=== PATIENT | male | born 1985 | race Two or more races ===

== ENCOUNTER 2016-12-03 20:51 | Emergency (ER) | payer SELFPAY ==
--- NOTE | 2016-12-03 21:36 | ER Document Report ---
ED General - General Chief Complaint: ETOH Abuse Stated Complaint: ETOH Time Seen by Provider: 12/03/16 20:55 Cannot obtain history due to: Uncooperative Notes: Patient is a 31-year-old male with a past medical history of alcohol abuse who presents by EMS for alcohol abuse. Apparently the police were called to his home where he resides with his father after he got into an altercation with his father. Please offer the patient a opportunity come to the emergency department versus being arrested. The patient was transported to the emergency department given that he elected to come here as opposed to being arrested. However, immediately on presentation patient is stating "I just want to get the fuck out of here". He denies any acute trauma. He denies any additional concerns that he would like addressed in the emergency department. History is otherwise limited secondary to patient compliance. - Related Data Allergies/Adverse Reactions: haloperidol [From Haldol] Adverse Reaction (Verified 12/03/16 21:16) Past Medical History - General Information source: Patient - Social History Smoking Status: Current Every Day Smoker Frequency of alcohol use: Heavy Drug Abuse: Heroin, Marijuana Lives with: Family Family History: Reviewed & Not Pertinent Review of Systems - Review of Systems Notes: Constitutional: Negative for fever. Cardiovascular: Negative for chest pain. Respiratory: Negative for shortness of breath. Gastrointestinal: Negative for vomiting Musculoskeletal: Negative for back pain. Skin: Negative for rash. Neurological: Negative for weakness or numbness. 10 point ROS negative except as marked above and in HPI. Physical Exam - Vital signs Vitals: Resp BP Pulse Ox 18 136/98 H 92 12/03/16 21:00 12/03/16 21:00 12/03/16 21:00 Interpretation: Normal Notes: PHYSICAL EXAMINATION: GENERAL: Well-appearing, well-nourished and in no acute distress. HEAD: Atraumatic, normocephalic. EYES: sclera anicteric, conjunctiva are normal. ENT: Moist mucous membranes. NECK: Normal range of motion LUNGS: Normal work of breathing HEART: 2+ radial pulses bilaterally EXTREMITIES: no pitting or edema. No cyanosis. NEUROLOGICAL: No focal neurological deficits. Moves all extremities spontaneously and on command. PSYCH: Normal mood, normal affect. SKIN: Warm, Dry, normal turgor, no rashes or lesions noted. Course - Re-evaluation Re-evalutation: 12/03/16 21:35 Patient presents with acute alcohol intoxication without any additional acute complaints. Admits to heavy alcohol use today. He was brought by EMS although states he did not want to come and denies any concerns. No evidence of trauma on exam. Patient was clinically sober at time of presentation. Able to ambulate and talking clear sentences prior to discharge. Tolerating oral intake without difficulty. The patient has been instructed to seek help for alcohol detoxification. Will discharge and return precautions and follow-up recommendations. - Vital Signs Vital signs: Temp Pulse Resp BP Pulse Ox 98.2 F 18 139/93 H 92 12/03/16 21:13 12/03/16 21:00 12/03/16 21:20 12/03/16 21:20 Discharge - Discharge Clinical Impression: Alcohol abuse Condition: Stable Disposition: HOME, SELF-CARE Additional Instructions: You were seen in the emergency department today for being drunk. Being seen in the emergency department after drinking alcohol is a serious indicator that you have a problem with alcohol. You should seek help with the attached resources for your problem drinking. Please return to the emergency room immediately if you experience any concerning symptoms including high fevers, severe headache, chest pain, difficulty breathing, abdominal pain, slurred speech, numbness or weakness in your arms or legs, or any other symptom that concerns you.
[2016-12-03 21:38] VITALS: BP 139/93
== END 2016-12-03 21:45 | disposition home or self-care (01) ==
LOC: ER 20:51
DX: F10.10 Alcohol abuse, uncomplicated (principal); F17.200 Nicotine dependence, unspecified, uncomplicated
CPT/HCPCS: 99284

== ENCOUNTER 2016-12-04 00:46 | Emergency (ER) | payer SELFPAY ==
--- NOTE | 2016-12-04 01:14 | ER Document Report ---
ED Substance Abuse / Acc. OD - General Chief Complaint: ETOH Abuse Stated Complaint: ETOH ABUSE Time Seen by Provider: 12/04/16 01:04 Notes: Patient is a 31-year-old male that comes to the ED for chief complaint of alcohol intoxication. Apparently patient was just released from this facility, he went home, he drank again, and he came back. He states he wants help with alcohol detox. He states that he has performed official detox program earlier in the year and has been doing well until he moved to [place] and now he drinks again. He denies SI or HI, he states he just wants to stop drinking. He takes Lexapro and lisinopril daily. He states that he smokes, he occasionally uses heroin and other recreational drugs. He states that he simply drank alcohol. TRAVEL OUTSIDE OF THE [place] IN LAST 30 DAYS: No - Related Data Allergies/Adverse Reactions: haloperidol [From Haldol] Adverse Reaction (Verified 12/03/16 21:16) Past Medical History - General Information source: Patient - Social History Smoking Status: Current Every Day Smoker Frequency of alcohol use: Heavy Drug Abuse: Heroin Lives with: Alone Family History: Reviewed & Not Pertinent Patient has suicidal ideation: No Patient has homicidal ideation: No - Medical History Medical History: Negative Renal/ Medical History: Denies: Hx Peritoneal Dialysis Surgical Hx: Negative - Immunizations Immunizations up to date: Yes Hx Diphtheria, Pertussis, Tetanus Vaccination: Yes Review of Systems - Review of Systems Constitutional: No symptoms reported EENT: No symptoms reported Cardiovascular: No symptoms reported Respiratory: No symptoms reported Gastrointestinal: No symptoms reported Genitourinary: No symptoms reported Male Genitourinary: No symptoms reported Musculoskeletal: No symptoms reported Skin: No symptoms reported Hematologic/Lymphatic: No symptoms reported Neurological/Psychological: See HPI Physical Exam - Vital signs Vitals: Temp Pulse Resp BP Pulse Ox 98.9 F 109 H 18 138/93 H 93 12/04/16 00:57 12/04/16 00:57 12/04/16 00:57 12/04/16 00:57 12/04/16 00:57 Interpretation: Normal - General General appearance: Appears well, Alert In distress: None - Patient is slurring his words and does appear intoxicated but he does not appear to be in any distress - HEENT Head: Normocephalic, Atraumatic Eyes: Normal Conjunctiva: Normal Extraocular movements intact: Yes Eyelashes: Normal Pupils: PERRL Nasal: Normal Mouth/Lips: Normal Mucous membranes: Normal Pharynx: Normal Neck: Normal - Respiratory Respiratory status: No respiratory distress Chest status: Nontender Breath sounds: Normal Chest palpation: Normal - Cardiovascular Rhythm: Regular. No: Tachycardia - No tachycardia on my exam Heart sounds: Normal auscultation, S1 appreciated, S2 appreciated Murmur: No - Abdominal Inspection: Normal Distension: No distension Bowel sounds: Normal Tenderness: Nontender. No: Tender, Guarding Organomegaly: No organomegaly - Back Back: Normal, Nontender - Extremities General upper extremity: Normal inspection, Nontender, Normal color, Normal ROM , Normal temperature General lower extremity: Normal inspection, Nontender, Normal color, Normal ROM , Normal temperature, Normal weight bearing. No: Tejas's sign - Neurological Neuro grossly intact: Yes Cognition: Normal Orientation: AAOx4. No: Disoriented to person, Disoriented to place, Disoriented to time, Disoriented to events [place] Coma Scale Eye Opening: Spontaneous [place] Coma Scale Verbal: Oriented Vanessa Coma Scale Motor: Obeys Commands [place] Coma Scale Total: 15 Speech: Normal, Other - Slight slurring of words Cerebellar coordination: Gait ataxia - Slight ataxia Motor strength normal: LUE, RUE, LLE, RLE Additional motor exam normals: Equal guest relations executive Sensory: Normal - Psychological Associated symptoms: Normal affect, Normal mood - Skin Skin Temperature: Warm Skin Moisture: Dry Skin Color: Normal Course - Re-evaluation Re-evalutation: Patient initially calm, he states that he does not want to go into detox, he states that he wants Ativan for withdrawals. Recommended that we could help refer him to detox if he changes his mind and I can give him Librium to help him perform detoxification. He states that he does not want Librium, he has tried this before, he wants Ativan. He states he likes Ativan. I explained that I would not be giving him Ativan but if he changes his mind about detox and Librium I am happy to provide him with these. He states "you aren't getting it, I want fucking Ativan". He states if he can't get it he just wants to leave. Explained to patient that when he porter up he can leave, unless he has a ride to leave now. He does not have a ride. He agrees to sober up here and then leave. Patient will be monitored until he does not slur his words and ambulates without difficulty. When he is clinically sober he will be discharged with resource referrals. 12/04/16 07:15 Patient is now clinically sober. He has declined offered treatments. He will be discharged with psychiatric referral packet and detox referral directions packet. - Vital Signs Vital signs: Temp Pulse Resp BP Pulse Ox 98.1 F 75 16 126/77 H 98 12/04/16 07:28 12/04/16 07:28 12/04/16 07:28 12/04/16 07:28 12/04/16 07:28 Discharge - Discharge Clinical Impression: Alcohol abuse Condition: Stable Disposition: HOME, SELF-CARE Additional Instructions: You were seen in the emergency department today for being drunk. Being seen in the emergency department after drinking alcohol is a serious indicator that you have a problem with alcohol. You should seek help with the attached resources for your problem drinking. Please return to the emergency room immediately if you experience any concerning symptoms including high fevers, severe headache, chest pain, difficulty breathing, abdominal pain, slurred speech, numbness or weakness in your arms or legs, or any other symptom that concerns you.
[2016-12-04 07:30] VITALS: BP 126/77
== END 2016-12-04 07:30 | disposition home or self-care (01) ==
LOC: ER 00:46
DX: F10.10 Alcohol abuse, uncomplicated (principal); F17.200 Nicotine dependence, unspecified, uncomplicated
CPT/HCPCS: 99284

== ENCOUNTER 2016-12-04 14:18 | Emergency (ER) | payer SELFPAY ==
[2016-12-04 14:24] VITALS: BP 133/102
== END 2016-12-04 14:33 | disposition left against medical advice (07) ==
LOC: ER 14:18
DX: Z53.21 Procedure and treatment not carried out due to patient leaving prior to being seen by health care provider (principal)

== ENCOUNTER 2016-12-05 14:30 | Emergency (ER) | payer SELFPAY ==
--- NOTE | 2016-12-05 14:54 | ER Document Report ---
ED Medical Screen (RME) - General Chief Complaint: ETOH Abuse Stated Complaint: NEEDS TO DETOX Time Seen by Provider: 12/05/16 14:50 Mode of Arrival: Ambulatory Information source: Patient Notes: 31-year-old male who has been here multiple times for alcohol intoxication presents with request for detox. Patient notes he last drank a few hours ago I have greeted and performed a rapid initial assessment of this patient. A comprehensive ED assessment and evaluation of the patient, analysis of test results and completion of the medical decision making process will be conducted by additional ED providers. PHYSICAL EXAMINATION: GENERAL: Intoxicated male HEAD: Atraumatic, normocephalic. EYES: Pupils equal round extraocular movements intact, conjunctiva are normal. ENT: Nares patent NECK: Normal range of motion LUNGS: No respiratory distress Musculoskeletal: Normal range of motion NEUROLOGICAL: Normal speech, normal gait. PSYCH: Normal mood, normal affect. SKIN: Warm, Dry, normal turgor, no rashes or lesions noted. TRAVEL OUTSIDE OF THE [place] IN LAST 30 DAYS: No - Related Data Allergies/Adverse Reactions: haloperidol [From Haldol] Adverse Reaction (Verified 12/05/16 14:45) Past Medical History - Social History Chew tobacco use (# tins/day): No Frequency of alcohol use: Heavy - Past Medical History Cardiac Medical History: Reports: Hx Hypertension Renal/ Medical History: Denies: Hx Peritoneal Dialysis - Immunizations Immunizations up to date: Yes Hx Diphtheria, Pertussis, Tetanus Vaccination: Yes Physical Exam - Vital signs Vitals: Temp Pulse Resp BP Pulse Ox 98.7 F 103 H 20 151/95 H 95 12/05/16 14:38 12/05/16 14:38 12/05/16 14:38 12/05/16 14:38 12/05/16 14:38 Course - Vital Signs Vital signs: Temp Pulse Resp BP Pulse Ox 98.7 F 103 H 20 151/95 H 95 12/05/16 14:38 12/05/16 14:38 12/05/16 14:38 12/05/16 14:38 12/05/16 14:38
[2016-12-05] MEDS ORDERED: LORAZEPAM INJ 2 MG/1 ML VIAL IM ONE (15:32)
[2016-12-05] MEDS ORDERED: ZIPRASIDONE MESYLATE INJ/PF 20 MG SDV IM ONE (15:34)
--- NOTE | 2016-12-05 15:58 | ER Document Report ---
ED Substance Abuse / Acc. OD - General Mode of Arrival: Ambulatory Information source: Patient TRAVEL OUTSIDE OF THE [place] IN LAST 30 DAYS: No - HPI Patient complains to provider of: Alcohol abuse Associated Symptoms: None <DARRIN AZEVEDO - Last Filed: 12/05/16 18:21> <CHRIS ABDI - Last Filed: 12/06/16 02:22> <PERRY DE LA ROSA - Last Filed: 12/06/16 06:53> - General Chief Complaint: ETOH Abuse Stated Complaint: NEEDS TO DETOX Time Seen by Provider: 12/05/16 14:50 - HPI Notes: Patient is a 31-year-old male presenting to the emergency room today requesting assistance with alcohol detox and rehab, states he was clean for approximately 13 months and then moved down to the [facility] from [place] 3 weeks ago for a job and since then has "fallen off the wagon", he drinks Declan Rice as his alcohol of choice and states that he will do any drug he can get his hands on, he is quite nasty and uncooperative at time of my evaluation, he is surrounded by 4 security guards as he is attempted to leave the emergency room, stating that we are not helping him, this is patient's fourth visit to this department for similar symptoms (DARRIN AZEVEDO) - Related Data Allergies/Adverse Reactions: haloperidol [From Haldol] Adverse Reaction (Verified 12/05/16 14:45) Past Medical History - General Information source: Patient - Social History Smoking Status: Current Some Day Smoker Chew tobacco use (# tins/day): No Frequency of alcohol use: Heavy Family History: Reviewed & Not Pertinent Patient has suicidal ideation: No Patient has homicidal ideation: No - Past Medical History Cardiac Medical History: Reports: Hx Hypertension Renal/ Medical History: Denies: Hx Peritoneal Dialysis - Immunizations Immunizations up to date: Yes Hx Diphtheria, Pertussis, Tetanus Vaccination: Yes <DARRIN AZEVEDO - Last Filed: 12/05/16 18:21> Review of Systems - Review of Systems Constitutional: No symptoms reported EENT: No symptoms reported Cardiovascular: No symptoms reported Respiratory: No symptoms reported Gastrointestinal: No symptoms reported Genitourinary: No symptoms reported Male Genitourinary: No symptoms reported Musculoskeletal: No symptoms reported Skin: No symptoms reported Hematologic/Lymphatic: No symptoms reported Neurological/Psychological: See HPI -: Yes All other systems reviewed and negative <DARRIN AZEVEDO - Last Filed: 12/05/16 18:21> Physical Exam - Vital signs Interpretation: Tachycardic - General General appearance: Appears well, Alert - HEENT Head: Normocephalic, Atraumatic Eyes: Normal Pupils: PERRL - Respiratory Respiratory status: No respiratory distress Chest status: Nontender Breath sounds: Normal Chest palpation: Normal - Cardiovascular Rhythm: Regular Heart sounds: Normal auscultation Murmur: No - Abdominal Inspection: Normal Distension: No distension Bowel sounds: Normal Tenderness: Nontender Organomegaly: No organomegaly - Back Back: Normal, Nontender - Extremities General upper extremity: Normal inspection, Nontender, Normal color, Normal ROM , Normal temperature General lower extremity: Normal inspection, Nontender, Normal color, Normal ROM , Normal temperature, Normal weight bearing. No: Tejas's sign - Neurological Neuro grossly intact: Yes Cognition: Normal Orientation: AAOx4 Vanessa Coma Scale Eye Opening: Spontaneous [place] Coma Scale Verbal: Oriented [place] Coma Scale Motor: Obeys Commands Vanessa Coma Scale Total: 15 Speech: Normal Motor strength normal: LUE, RUE, LLE, RLE Sensory: Normal - Psychological Associated symptoms: Agitated, Angry, Combative, Uncooperative, Other - EtOH on breath - Skin Skin Temperature: Warm Skin Moisture: Dry Skin Color: Normal <DARRIN AZEVEDO - Last Filed: 12/05/16 18:21> - Vital signs Vitals: Temp Pulse Resp BP Pulse Ox 98.7 F 103 H 20 151/95 H 95 12/05/16 14:38 12/05/16 14:38 12/05/16 14:38 12/05/16 14:38 12/05/16 14:38 Course <DARRIN AZEVEDO - Last Filed: 12/05/16 18:21> - Laboratory Result Diagrams: 12/05/16 20:09 12/05/16 20:09 <CHRIS ABDI - Last Filed: 12/06/16 02:22> - Laboratory Result Diagrams: 12/05/16 20:09 12/05/16 20:09 <PERRY DE LA ROSA - Last Filed: 12/06/16 06:53> - Re-evaluation Re-evalutation: 12/05/16 15:57 Patient was slurred speech and unsteady gait, patient is not clinically sober to be safely discharged at this point in time, although is uncooperative and attempting to leave to the department, I feel it is unsafe to allow him to leave at this point in time, therefore intramuscular medication was ordered in an attempt to calm patient down and security is at bedside to ensure that patient does not leave the department 12/05/16 18:21 Patient has been sleeping comfortably on the stretcher, discussed with Dr. Abdi who agrees to assume care until patient is clinically sober and safe for discharge (DARRIN AZEVEDO) 12/06/16 02:23 Sign-out from Dr. Ordoñez: 31 yo alcoholic presents belligerent and intoxicated. Patient woke up and is threatening to the nurses. I evaluated the patient and he is clinically sober. He has gone through withdrawal seizures in the past, but he is still requesting detox. He said that he will remain cooperative and speak to mental health in the morning because he just moved here and is unsure how to obtain detox. We will provide him with a dose of Valium to help prevent any withdrawal symptoms. (CHRIS ABDI) 12/06/16 06:50 Pt is awake, alert, no longer wishes to go to detox, no tremor, no signs of withdrawal, denies suicidal ideation, denies desire for librium to prevent withdrawal symptoms at home, currently denies history of withdrawal seizures despite previous statements to the contrary. Patient will be discharged home. ( PERRY DE LA ROSA) - Vital Signs Vital signs: Temp Pulse Resp BP Pulse Ox 98.0 F 89 16 116/95 H 98 12/06/16 05:39 12/06/16 05:39 12/06/16 05:39 12/06/16 05:39 12/06/16 05:39 - Laboratory Laboratory results interpreted by me: 12/05/16 12/05/16 12/05/16 16:22 20:09 20:09 WBC 13.3 H Absolute Neutrophils 9.8 H BUN 5 L AST 73 H Urine Protein 100 H Urine Blood MODERATE H Salicylates < 1.0 L Acetaminophen < 10 L Discharge <DARRIN AZEVEDO - Last Filed: 12/05/16 18:21> <CHRIS ABDI - Last Filed: 12/06/16 02:22> <PERRY DE LA ROSA - Last Filed: 12/06/16 06:53> - Discharge Clinical Impression: Alcohol abuse Condition: Stable Disposition: HOME, SELF-CARE Additional Instructions: Alcohol Withdrawal Your symptoms are caused by alcohol withdrawal. After a period of frequent drinking, the brain and body are changed by the alcohol. When you quit or reduce your drinking, the nervous system becomes unstable. Withdrawal symptoms can start a few hours after your last drink, but sometimes don't begin until a couple of days later. Symptoms can include shakiness, sweating, insomnia, nausea , vomiting, fearfulness, hallucinations, and seizures. In addition to the acute effects of alcohol withdrawal, we often have to deal with the medical effects of alcoholism. These problems often include dehydration, stomach irritation, intestinal bleeding, low blood sugar, liver disease, and pancreas inflammation. Treatment for alcohol withdrawal includes mild sedatives, vitamins, and fluids. You need to be with someone who can help if symptoms become severe. Many patients can withdraw at home. Admission to the hospital or a detox facility may be necessary if withdrawal symptoms are severe and uncontrollable. Abstaining from alcohol is the only effective long-term treatment. If you start drinking again, you will not be able to control yourself after the first drink. Treatment programs are available. In addition, many alcoholics benefit from Alcoholics Anonymous or other support groups available through your counselor or yazidism blacksmith helper. [facility] and [employer] are support groups for friends and family members of an alcoholic. Go to the emergency room if you develop persistent vomiting, severe abdominal pain, fever, shortness of breath, hallucinations, uncontrollable tremors, or seizures.
--- NOTE | 2016-12-05 16:31 | ER Document Report ---
ED Psych Disorder / Suicide - General Mode of Arrival: Ambulatory Information source: Patient Cannot obtain history due to: Intoxicated - likely intoxicated, Other - Received Geodon to assist him in remaining calm and safe due to suspected level of intoxication TRAVEL OUTSIDE OF THE [place] IN LAST 30 DAYS: No - HPI Onset: Other Onset was: Cannot confirm Suicide Risk Factors: Substance abuse - daily liquor Normal mood: No Similar symptoms previously: Yes - 4th visit in 3 days Recently seen / treated by doctor: Yes - [facility] <DAVID CUMMINGS - Last Filed: 12/05/16 16:20> <PERRY DE LA ROSA - Last Filed: 12/06/16 06:53> - General Chief Complaint: ETOH Abuse Stated Complaint: NEEDS TO DETOX Time Seen by Provider: 12/05/16 14:50 - HPI Notes: Patient is a 31 year old male who presented to the ER today requesting assistance with detox. Patient reportedly had a recent relapse after 13 months of sobriety. Patient reported relocated to [facility] for a job. He has presented 4 x, to include yesterday; however, left without being seen. Patient was observed verbally belligerent. Patient was administered medications to assist him in remaining calm for his safety and the safety of others. Did attempt to speak with the patient, but was unable to arouse patient for conversation. Will attempt at a later time. (DAVID CUMMINGS) - Related Data Allergies/Adverse Reactions: haloperidol [From Haldol] Adverse Reaction (Verified 12/05/16 14:45) Past Medical History - General Information source: Patient - Social History Smoking Status: Current Some Day Smoker Chew tobacco use (# tins/day): No Frequency of alcohol use: Heavy Family History: Reviewed & Not Pertinent Patient has suicidal ideation: No Patient has homicidal ideation: No - Past Medical History Cardiac Medical History: Reports: Hx Hypertension Renal/ Medical History: Denies: Hx Peritoneal Dialysis - Immunizations Immunizations up to date: Yes Hx Diphtheria, Pertussis, Tetanus Vaccination: Yes <DAVID CUMMINGS - Last Filed: 12/05/16 16:20> - Vital signs Vitals: Temp Pulse Resp BP Pulse Ox 98.7 F 103 H 20 151/95 H 95 12/05/16 14:38 12/05/16 14:38 12/05/16 14:38 12/05/16 14:38 12/05/16 14:38 Course - Laboratory Result Diagrams: 12/05/16 20:09 12/05/16 20:09 <PERRY DE LA ROSA - Last Filed: 12/06/16 06:53> - Vital Signs Vital signs: Temp Pulse Resp BP Pulse Ox 98.0 F 89 16 116/95 H 98 12/06/16 05:39 12/06/16 05:39 12/06/16 05:39 12/06/16 05:39 12/06/16 05:39 - Laboratory Laboratory results interpreted by me: 12/05/16 12/05/16 12/05/16 16:22 20:09 20:09 WBC 13.3 H Absolute Neutrophils 9.8 H BUN 5 L AST 73 H Urine Protein 100 H Urine Blood MODERATE H Salicylates < 1.0 L Acetaminophen < 10 L Discharge <DAVID CUMMINGS - Last Filed: 12/05/16 16:20> <PERRY DE LA ROSA - Last Filed: 12/06/16 06:53> - Discharge Clinical Impression: Alcohol abuse Condition: Stable Disposition: HOME, SELF-CARE Additional Instructions: Alcohol Withdrawal Your symptoms are caused by alcohol withdrawal. After a period of frequent drinking, the brain and body are changed by the alcohol. When you quit or reduce your drinking, the nervous system becomes unstable. Withdrawal symptoms can start a few hours after your last drink, but sometimes don't begin until a couple of days later. Symptoms can include shakiness, sweating, insomnia, nausea , vomiting, fearfulness, hallucinations, and seizures. In addition to the acute effects of alcohol withdrawal, we often have to deal with the medical effects of alcoholism. These problems often include dehydration, stomach irritation, intestinal bleeding, low blood sugar, liver disease, and pancreas inflammation. Treatment for alcohol withdrawal includes mild sedatives, vitamins, and fluids. You need to be with someone who can help if symptoms become severe. Many patients can withdraw at home. Admission to the hospital or a detox facility may be necessary if withdrawal symptoms are severe and uncontrollable. Abstaining from alcohol is the only effective long-term treatment. If you start drinking again, you will not be able to control yourself after the first drink. Treatment programs are available. In addition, many alcoholics benefit from Alcoholics Anonymous or other support groups available through your counselor or congregational asl interpreter. [facility] and A[employer]TE[facility] are support groups for friends and family members of an alcoholic. Go to the emergency room if you develop persistent vomiting, severe abdominal pain, fever, shortness of breath, hallucinations, uncontrollable tremors, or seizures.
[2016-12-05 17:02] LABS: APPEARANCE,URINE CLEAR; BILIRUBIN,URINE NEGATIVE (NEGATIVE); GLUCOSE, URINE NEGATIVE (NEGATIVE); KETONES,URINE NEGATIVE (NEGATIVE); LEUKOCYTE ESTERASE,URINE NEGATIVE (NEGATIVE); NITRITE,URINE NEGATIVE (NEGATIVE); PROTEIN,URINE 100 mg/dL (NEGATIVE); URINE SPECIFIC GRAVITY 1.003; UROBILINOGEN,URINE NEGATIVE mg/dL (<2.0)
[2016-12-05 17:24] LABS: URINE BARBITURATES SCREEN NEGATIVE; URINE METHADONE SCREEN NEGATIVE; URINE OPIATES LOW NEGATIVE; URINE PHENCYCLIDINE SCREEN NEGATIVE
[2016-12-05 20:23] LABS: ABSOLUTE BASOPHILS # (AUTO) 0.1 10^3/uL (0.0-0.2); ABSOLUTE EOSINOPHILS # (AUTO) 0.2 10^3/uL (0.0-0.6); ABSOLUTE LYMPHOCYTES (AUTO) 2.7 10^3/uL (0.5-4.7); ABSOLUTE MONOCYTES (AUTO) 0.5 10^3/uL (0.1-1.4); ABSOLUTE NEUT (AUTO) 9.8 10^3/uL (1.7-8.2); BASOPHILS % (AUTO) 0.4 % (0-2); EOSINOPHILS % (AUTO) 1.7 % (0-6); HEMATOCRIT 43.1 % (37.9-51.0); HGB HCT DIFFERENCE 1.9; LYMPHOCYTES % (AUTO) 20.1 % (13-45); MEAN CORPUSCULAR HEMOGLOBIN 30.6 pg (27.0-33.4); MEAN CORPUSCULAR HGB CONC 34.9 g/dL (32.0-36.0); MEAN CORPUSCULAR VOLUME 88 fl (80-97); MONOCYTES % (AUTO) 4.1 % (3-13); RED BLOOD COUNT 4.93 10^6/uL (4.35-5.55); RED CELL DISTRIBUTION WIDTH 12.7 % (11.5-14.0); SEGMENTED NEUTROPHILS % (AUTO) 73.7 % (42-78); WHITE BLOOD COUNT 13.3 10^3/uL (4.0-10.5)
[2016-12-05 20:50] LABS: ALANINE AMINOTRANSFERASE 40 U/L (21-72); ALBUMIN 4.9 g/dL (3.5-5.0); ALCOHOL 259 mg/dL (NONE DETECTED); ALKALINE PHOSPHATASE 90 U/L (38-126); ANION GAP 17 (5-19); ASPARTATE AMINO TRANSFERASE 73 U/L (17-59); BILIRUBIN,DIRECT 0.4 mg/dL (0.0-0.4); BILIRUBIN,TOTAL 0.9 mg/dL (0.2-1.3); BLOOD UREA NITROGEN 5 mg/dL (7-20); CALCIUM 9.4 mg/dL (8.4-10.2); CARBON DIOXIDE 25 mmol/L (22-30); CHLORIDE 100 mmol/L (98-107); CREATININE RESULT 0.76 mg/dL (0.52-1.25); GLUCOSE 96 mg/dL (75-110); POTASSIUM 4.4 mmol/L (3.6-5.0); SODIUM 141.7 mmol/L (137-145); TOTAL PROTEIN 7.8 g/dL (6.3-8.2)
[2016-12-06] MEDS ORDERED: DIAZEPAM 5 MG TABLET PO ONE (02:22)
[2016-12-06 05:51] VITALS: BP 116/95
--- NOTE | 2016-12-06 16:44 | EKG REPORT ---
SEVERITY:- NORMAL ECG - SINUS RHYTHM : Confirmed by: Rossana Morales MD 06-Dec-2016 16:44:13
== END 2016-12-06 06:55 | disposition home or self-care (01) ==
LOC: ER 14:30
DX: F10.10 Alcohol abuse, uncomplicated (principal); F17.200 Nicotine dependence, unspecified, uncomplicated
CPT/HCPCS: 93005; 99284; 96372; 36415; 80307 ×4; 85025; 80053; 81001; 93010; J3486

== ENCOUNTER 2016-12-06 21:24 | Emergency (ER) | payer SELFPAY ==
[2016-12-06] MEDS ORDERED: ZIPRASIDONE MESYLATE INJ/PF 20 MG SDV IM ONE (21:28)
--- NOTE | 2016-12-06 21:30 | ER Document Report ---
ED Substance Abuse / Acc. OD - General Chief Complaint: ETOH Abuse Stated Complaint: ETOH/ALTERED MENTAL STATUS Time Seen by Provider: 12/06/16 21:28 Notes: The patient is a 31-year-old male, past medical history chronic alcoholism, presents by EMS after he was at his hotel and harassing other hotel guest. He drinks 24 shots of Declan Rice a day said that he drank again tonight. This is his 5th visit this week for similar symptoms. He left this morning after he requested detox, but he did not stay around to speak to mental health. He began to spit and become aggressive towards EMS prior to arrival. Patient continues to say, "Fuck all you" to the ER staff on arrival to the ER. Unable to obtain any additional history. TRAVEL OUTSIDE OF THE [place] IN LAST 30 DAYS: No - Related Data Allergies/Adverse Reactions: haloperidol [From Haldol] Adverse Reaction (Verified 12/05/16 14:45) Past Medical History - General Information source: Emergency Med Personnel - Social History Smoking Status: Current Every Day Smoker Frequency of alcohol use: Heavy Family History: Reviewed & Not Pertinent - Past Medical History Cardiac Medical History: Reports: Hx Hypertension Renal/ Medical History: Denies: Hx Peritoneal Dialysis - Immunizations Immunizations up to date: Yes Hx Diphtheria, Pertussis, Tetanus Vaccination: Yes Review of Systems - Review of Systems -: Yes ROS unobtainable due to patient's medical condition Physical Exam - Vital signs Vitals: Pulse Resp BP Pulse Ox 90 18 141/98 H 99 12/06/16 21:49 12/06/16 21:49 12/06/16 21:49 12/06/16 21:49 - Notes Notes: PHYSICAL EXAMINATION: GENERAL: Agitated. Spitting. Screaming. HEAD: Atraumatic, normocephalic. EYES: Pupils equal round and reactive to light, extraocular movements intact, sclera anicteric, conjunctiva are normal. ENT: nares patent, oropharynx clear without exudates. Moist mucous membranes. NECK: Normal range of motion, supple without lymphadenopathy LUNGS: Breath sounds clear to auscultation bilaterally and equal. No wheezes rales or rhonchi. HEART: Regular rate and rhythm without murmurs ABDOMEN: Soft, nontender, normoactive bowel sounds. No guarding, no rebound. No masses appreciated. EXTREMITIES: Normal range of motion, no pitting or edema. No cyanosis. NEUROLOGICAL: Moving all 4 extremities, no focal neuro deficits. PSYCH: Agitated. SKIN: Warm, Dry, normal turgor, no rashes or lesions noted. Course - Re-evaluation Re-evalutation: Patient presents for the fifth time this week with similar symptoms. He is clinically intoxicated and Accu-Chek is normal. He was provided Geodon due to spitting and trying to hit the staff. Patient provided with detox resources multiple times. Patient discharged home with a steady gait and when he was clinically sober. - Vital Signs Vital signs: Temp Pulse Resp BP Pulse Ox 90 18 141/98 H 99 12/06/16 21:49 12/06/16 21:49 12/06/16 21:49 12/06/16 21:49 Discharge - Discharge Clinical Impression: Alcohol intoxication Qualifiers: Complication of substance-induced condition: with unspecified complication Qualified Code(s): F10.929 - Alcohol use, unspecified with intoxication, unspecified Condition: Stable Additional Instructions: ACUTE ALCOHOL INTOXICATION and ALCOHOL ABUSE: Your evaluation revealed very high levels of alcohol. You can from drinking a large amount of alcohol rapidly! Further, there's the risk of falls , traffic accidents, and fights. A high portion (about 50 percent) of the serious injuries seen in hospital emergency rooms are caused by alcohol. Alcohol overdosage is usually due to an underlying emotional or psychiatric problem. You may benefit from counselling. If "binge" drinking is an ongoing problem for you, or if you drink ANY AMOUNT of alcohol EVERY day, you most likely have a tendency to alcoholism. You should avoid alcohol totally. We can refer you for treatment. Persons with alcohol problems are often also prone to other addictions -- you should discuss any use of medications or drugs with the doctor. You should be watched at home for the next several hours by someone who has not been drinking. Get extra fluids for the next 24 hours. Call the doctor if there is repeated vomiting, increasing headache, decreasing level of alertness, or any other worsening. CHRONIC ALCOHOLISM and ALCOHOL ABUSE: Your evaluation reveals evidence of chronic alcoholism, an addiction to alcohol. The tendency to alcoholism may be inherited. Chronic use of alcohol weakens muscles, causes fatty deposits in the liver , damages the stomach, makes you more prone to infections, and can cause defects in unborn children. In the long run, brain atrophy and cirrhosis of the liver result. You are also at greater risk for certain types of cancer, such as cancer of the mouth, throat, stomach, and liver. Counselling services are available to help you. In-hospital treatment programs often help. Support groups such as Alcoholics Anonymous can be very useful in beating this addiction. Your physician can make a referral for you. As alcoholics often are prone to other addictions, you should discuss your use of any other medications with the doctor. FOLLOW-UP CARE: If you have been referred to a physician for follow-up care, call the physician s office for an appointment as you were instructed or within the next two days. If you experience worsening or a significant change in your symptoms, notify the physician immediately or return to the Emergency Department at any time for re-evaluation. Forms: Elevated Blood Pressure Referrals: [facility] [Outside] - Follow up as needed
[2016-12-07 06:49] VITALS: BP 108/68
== END 2016-12-07 06:48 | disposition home or self-care (01) ==
LOC: ER 21:24
DX: F10.929 Alcohol use, unspecified with intoxication, unspecified (principal); F17.200 Nicotine dependence, unspecified, uncomplicated; I10 Essential (primary) hypertension
CPT/HCPCS: 99285; 96372; 82962; J3486

== ENCOUNTER 2016-12-08 20:33 | Emergency (ER) | payer SELFPAY ==
[2016-12-08] MEDS ORDERED: ZIPRASIDONE MESYLATE INJ/PF 20 MG SDV IM ONE (23:58)
[2016-12-08] MEDS ORDERED: DIAZEPAM 5 MG TABLET PO ONE (23:59)
--- NOTE | 2016-12-09 00:06 | ER Document Report ---
ED General - General Chief Complaint: ETOH Abuse Stated Complaint: ETOH Time Seen by Provider: 12/08/16 23:34 Notes: Patient is a 31-year-old male, well-known to this emergency department after moving just 2 weeks ago from [place] apparently for work who again presents today requesting detox from alcohol. Patient denies any known history of complicated withdrawals, seizures or delirium tremens. He denies any of these events at home today. He states that he is craving alcohol and that is why he feels he needs to be admitted to the hospital for withdrawal. He denies any additional acute medical complaints. He does not have a local primary care physician. He has not contacted any of the outpatient resources that he has been provided with. Nothing improves or worsens his symptoms. TRAVEL OUTSIDE OF THE [place] IN LAST 30 DAYS: No - Related Data Allergies/Adverse Reactions: haloperidol [From Haldol] Adverse Reaction (Verified 12/05/16 14:45) Past Medical History - General Information source: Patient - Social History Smoking Status: Current Every Day Smoker Frequency of alcohol use: Heavy Lives with: Parents Family History: Reviewed & Not Pertinent Patient has suicidal ideation: No Patient has homicidal ideation: No - Past Medical History Cardiac Medical History: Reports: Hx Hypertension Renal/ Medical History: Denies: Hx Peritoneal Dialysis - Immunizations Immunizations up to date: Yes Hx Diphtheria, Pertussis, Tetanus Vaccination: Yes Review of Systems - Review of Systems Notes: Constitutional: Negative for fever. HENT: Negative for sore throat. Eyes: Negative for visual changes. Cardiovascular: Negative for chest pain. Respiratory: Negative for shortness of breath. Gastrointestinal: Negative for abdominal pain, vomiting or diarrhea. Genitourinary: Negative for dysuria. Musculoskeletal: Negative for back pain. Skin: Negative for rash. Neurological: Negative for headaches, weakness or numbness. 10 point ROS negative except as marked above and in HPI. Physical Exam - Vital signs Vitals: Temp Pulse Resp BP Pulse Ox 99.0 F 110 H 18 138/98 H 96 12/08/16 21:30 12/08/16 21:30 12/08/16 21:30 12/08/16 21:30 12/08/16 21:30 Interpretation: Tachycardic Notes: PHYSICAL EXAMINATION: GENERAL: Well-appearing, well-nourished and in no acute distress. HEAD: Atraumatic, normocephalic. EYES: sclera anicteric, conjunctiva are normal. ENT: Moist mucous membranes. NECK: Normal range of motion LUNGS: Normal work of breathing HEART: 2+ radial pulses bilaterally EXTREMITIES: no pitting or edema. No cyanosis. NEUROLOGICAL: No focal neurological deficits. Moves all extremities spontaneously and on command. PSYCH: Normal mood, normal affect. SKIN: Warm, Dry, normal turgor, no rashes or lesions noted. Course - Re-evaluation Re-evalutation: 12/09/16 00:03 Patient presents requesting inpatient admission for alcohol withdrawal. He has no active symptoms of withdrawal at time of presentation. Mild tachycardia but no significant hypertension, does not appear tremulous. He is not vomiting. Patient states that he wants to be admitted because he is "Jonesing" for a drink and that there is nothing to stop him from drinking. Patient has been to this emergency department a multitude of times over the last 1 week since he moved from [place] and is frequently abusive toward staff although he is relatively calm and cooperative tonight. He is here with his father. He does not appear significantly intoxicated at time of presentation. Patient has no acute medical need to be admitted to the hospital for alcohol withdrawal and I have explained to him that if he is serious about getting clean, he can engage the outpatient resources which have been provided to him on over half a dozen occasions. After an extensive conversation I did offer a Librium taper as an outpatient as long as the medication is kept in the custody of the father. His father at the bedside is agreeable to this. Patient is also requesting a repeat dose of IM Geodon prior to discharge as it helped him calm down and he feels this would help him sleep tonight. I think this is an acceptable option and will also give him a low-dose of oral Valium to prevent active withdrawals. 12/09/16 03:52 - Vital Signs Vital signs: Temp Pulse Resp BP Pulse Ox 99.0 F 99 16 101/60 94 12/08/16 21:30 12/09/16 01:23 12/09/16 01:23 12/09/16 01:23 12/09/16 01:23 Discharge - Discharge Clinical Impression: Alcohol abuse Condition: Fair Disposition: HOME, SELF-CARE Additional Instructions: You have been sent home on medication to help withdraw from alcohol. You should only start taking this medication and discontinue alcohol if you are seroius about quitting alcohol. This will not completely remove all your symptoms from withdrawal should make it so that your symptoms are more manageable. You need to return to the emergency room immediately if you pass out, or vomiting so severely your unable to keep anything down, start hallucinate, or have any other symptoms that are of concern to you. You need to go to an inpatient program and should speak with your primary care doctor regarding these resources. How to take the librium to come off alcohol. DO NOT DRINK ANY ALCOHOL WHILE USING THIS MEDICATION Day 1-3: 75mg PO TID Day 4-6: 50mg PO TID Day 7-9: 25mg PO TID Day 10-12: 25mg PO BID Day 13-15: 25mg PO daily PRN Prescriptions: Chlordiazepoxide HCl [Librium 25 mg Capsule] 1 cap PO ASDIR PRN #70 capsule PRN Reason:
[2016-12-09 01:25] VITALS: BP 101/60
== END 2016-12-09 01:23 | disposition home or self-care (01) ==
LOC: ER 20:33
DX: F10.10 Alcohol abuse, uncomplicated (principal); F17.200 Nicotine dependence, unspecified, uncomplicated
CPT/HCPCS: 99284; 96372; J3486